=== PATIENT | male | born 1990 | race Caucasian/White ===

== ENCOUNTER → 2020-01-21 | Outpatient (CLI) | payer BC, OTHER | LOC: LAB 10:57 | PROVIDERS: ATTEND Nurse Practitioner | DX: J02.9 Acute pharyngitis, unspecified (principal); M79.10 Myalgia, unspecified site; Z20.828 Contact with and (suspected) exposure to other viral communicable diseases ==

== ENCOUNTER → 2020-08-31 | Outpatient (CLI) | payer BC, OTHER | LOC: LAB 13:46 | PROVIDERS: ATTEND Nurse Practitioner | DX: R11.2 Nausea with vomiting, unspecified (principal); R53.83 Other fatigue; M79.10 Myalgia, unspecified site; Z20.822 Contact with and (suspected) exposure to COVID-19 ==